=== PATIENT | male | born 1975 | race Caucasian/White ===

== ENCOUNTER 2022-09-25 05:32 | Inpatient (IN) | payer BC ==
[2022-09-25 06:20] LABS: #Basophils 0.1 10x3/uL (0.0-0.2); #Eosinphils 0.4 10x3/uL (0.0-0.5); #Monocytes 1.2 10x3/uL (0.0-1.1); #Neutrophils 5.9 10x3/uL (1.5-8.4); %Basophils 0.8 % (0.0-2.0); %Eosinophils 3.8 % (0.0-6.0); %Monocytes 11.5 % (0.0-10.0); %Neutrophils 56.6 % (40.0-75.0); Mean Corpuscular HGB CONC 34.6 g/dL (32.0-36.0); Mean Corpuscular Hemoglobin 30.7 pg (27.0-33.0); Mean Corpuscular Volume 88.8 fl (81.2-95.1); Mean Platelet Volume 9.9 fl (7.4-10.4); Platelet Count 324 10x3/uL (150-450); RBC Distribution Width 13.2 % (11.5-14.5); Red Blood Cell (RBC) Count 4.56 10x6/uL (4.32-5.72); White Blood Cell (WBC) Count 10.4 10x3/uL (3.5-10.5)
[2022-09-25 06:25] LABS: ALT (SGPT) 59 U/L (8-55); AST (SGOT) 29 U/L (5-34); Albumin 4.1 g/dL (3.5-5.0); Alkaline Phosphatase 148 U/L (40-110); Anion Gap 14 mmol/L (10-20); BUN (Urea Nitrogen) 21 mg/dL (8.9-20.6); Bilirubin, Total 0.5 mg/dL (0.2-1.2); Calc. Creatinine Clearance 0 mL/min (70-130); Calcium 9.9 mg/dL (7.8-10.44); Carbon Dioxide 24 mmol/L (22-29); Chloride 104 mmol/L (98-107); Estimated GFR 101; Globulin 2.9 g/dL (2.4-3.5); Glucose 106 mg/dL (70-105); Sodium 138 mmol/L (136-145)
[2022-09-25] MEDS ORDERED: Morphine 4 MG/ML VIAL ONE (07:00)
[2022-09-25] MEDS ORDERED: Ondansetron PF 4 MG/2 ML Vial ONE (07:00)
[2022-09-25] MEDS ORDERED: Ondansetron PF 4 MG/2 ML Vial IVP PRN (08:01)
[2022-09-25 08:05] LABS: INR-International Normal Ratio 0.9; PTT 28.6 sec (22.0-33.0); Prothrombin Time 10.1 sec (9.5-12.1)
[2022-09-25 09:22] LABS: Troponin I Less than 0.010 ng/mL (< 0.028)
[2022-09-25 10:03] VITALS: BMI 27.8
[2022-09-25] MEDS: HYDROcodone/Acetaminophen 10/325 mg Tablet PO PRN ×2 (11:58→20:17)
[2022-09-25] MEDS: Fish Oil 1,000 MG CAP PO SCH (20:17)
[2022-09-25] MEDS: QUEtiapine 100 MG TAB PO SCH (20:18)
[2022-09-25] MEDS: Famotidine 20 MG TAB PO SCH (20:19)
[2022-09-26] MEDS: oxyCODONE 5 MG TAB PO PRN ×3 (01:29→20:48)
[2022-09-26 03:44] LABS: #Basophils 0.1 10x3/uL (0.0-0.2); #Eosinphils 0.3 10x3/uL (0.0-0.5); #Neutrophils 5.1 10x3/uL (1.5-8.4); %Basophils 0.6 % (0.0-2.0); %Eosinophils 3.6 % (0.0-6.0); %Lymphocytes 30.2 % (18.0-47.0); %Monocytes 10.3 % (0.0-10.0); %Neutrophils 54.8 % (40.0-75.0); Hemoglobin 13.5 g/dL (13.5-17.5); Mean Corpuscular HGB CONC 33.9 g/dL (32.0-36.0); Mean Corpuscular Hemoglobin 30.5 pg (27.0-33.0); Mean Corpuscular Volume 89.8 fl (81.2-95.1); Mean Platelet Volume 9.8 fl (7.4-10.4); Platelet Count 321 10x3/uL (150-450); Red Blood Cell (RBC) Count 4.43 10x6/uL (4.32-5.72); White Blood Cell (WBC) Count 9.3 10x3/uL (3.5-10.5)
[2022-09-26 04:03] LABS: ALT (SGPT) 83 U/L (8-55); AST (SGOT) 54 U/L (5-34); Albumin 3.9 g/dL (3.5-5.0); Alkaline Phosphatase 164 U/L (40-110); Anion Gap 15 mmol/L (10-20); BUN (Urea Nitrogen) 20 mg/dL (8.9-20.6); Bilirubin, Total 0.4 mg/dL (0.2-1.2); Calc. Creatinine Clearance 134 mL/min (70-130); Calcium 9.4 mg/dL (7.8-10.44); Carbon Dioxide 23 mmol/L (22-29); Chloride 103 mmol/L (98-107); Estimated GFR 103; Globulin 2.8 g/dL (2.4-3.5); Glucose 115 mg/dL (70-105); Potassium 4.1 mmol/L (3.5-5.1); Protein, Total 6.7 g/dL (6.0-8.3); Sodium 137 mmol/L (136-145)
[2022-09-26] MEDS: Lidocaine 4% Patch TD SCH (11:52)
[2022-09-26] MEDS: Venlafaxine HCl XR 75 MG CAP PO SCH (11:53)
[2022-09-26] MEDS: Famotidine 20 MG TAB PO SCH (11:54)
[2022-09-26] MEDS: Bupropion 150 MG XL TAB PO SCH (11:55)
[2022-09-26] MEDS ORDERED: traMADol HCl 50 MG TAB PO PRN (12:44)
[2022-09-26] MEDS ORDERED: Cyclobenzaprine 10 MG TAB PO SCH (13:00)
[2022-09-26] MEDS: Acetaminophen 325 MG TAB PO PRN (16:24)
[2022-09-26] MEDS ORDERED: methylPREDNISolone Sod Succ 40 MG VIAL IVP SCH (18:30)
[2022-09-26] MEDS: QUEtiapine 100 MG TAB PO SCH (20:48)
[2022-09-26] MEDS: Fish Oil 1,000 MG CAP PO SCH (20:48)
[2022-09-26] MEDS: Transdermal Patch Removal TOP SCH (21:05)
[2022-09-27 04:56] LABS: #Basophils 0.1 10x3/uL (0.0-0.2); #Eosinphils 0.1 10x3/uL (0.0-0.5); #Monocytes 0.3 10x3/uL (0.0-1.1); #Neutrophils 8.4 10x3/uL (1.5-8.4); %Basophils 0.5 % (0.0-2.0); %Eosinophils 0.5 % (0.0-6.0); %Monocytes 2.8 % (0.0-10.0); %Neutrophils 81.4 % (40.0-75.0); Hemoglobin 15.3 g/dL (13.5-17.5); Mean Corpuscular HGB CONC 34.8 g/dL (32.0-36.0); Mean Corpuscular Hemoglobin 30.6 pg (27.0-33.0); Mean Platelet Volume 9.6 fl (7.4-10.4); Platelet Count 396 10x3/uL (150-450); RBC Distribution Width 12.6 % (11.5-14.5); White Blood Cell (WBC) Count 10.3 10x3/uL (3.5-10.5)
[2022-09-27 05:17] LABS: ALT (SGPT) 88 U/L (8-55); AST (SGOT) 50 U/L (5-34); Albumin 4.6 g/dL (3.5-5.0); Alkaline Phosphatase 182 U/L (40-110); Anion Gap 14 mmol/L (10-20); BUN (Urea Nitrogen) 16 mg/dL (8.9-20.6); Bilirubin, Total 0.5 mg/dL (0.2-1.2); Calc. Creatinine Clearance 139 mL/min (70-130); Carbon Dioxide 24 mmol/L (22-29); Chloride 101 mmol/L (98-107); Estimated GFR 107; Globulin 3.5 g/dL (2.4-3.5); Glucose 175 mg/dL (70-105); Potassium 5.3 mmol/L (3.5-5.1); Protein, Total 8.1 g/dL (6.0-8.3); Sodium 134 mmol/L (136-145)
[2022-09-27] MEDS: Lidocaine 4% Patch TD SCH (08:43)
[2022-09-27] MEDS: Bupropion 150 MG XL TAB PO SCH (08:43)
[2022-09-27] MEDS: Venlafaxine HCl XR 75 MG CAP PO SCH (08:44)
[2022-09-27] MEDS: Acetaminophen 325 MG TAB PO PRN (08:44)
[2022-09-27] MEDS ORDERED: Apixaban 5 MG TAB PO SCH (09:00)
[2022-09-27] MEDS ORDERED: Lidocaine 4% Patch TD SCH (14:00)
[2022-09-27 14:24] LABS: Anion Gap 18 mmol/L (10-20); BUN (Urea Nitrogen) 23 mg/dL (8.9-20.6); Calc. Creatinine Clearance 129 mL/min (70-130); Calcium 11.4 mg/dL (7.8-10.44); Carbon Dioxide 23 mmol/L (22-29); Chloride 101 mmol/L (98-107); Estimated GFR 98; Glucose 99 mg/dL (70-105); Potassium 4.9 mmol/L (3.5-5.1); Sodium 137 mmol/L (136-145)
[2022-09-27] MEDS: oxyCODONE 5 MG TAB PO PRN (18:50)
[2022-09-27] MEDS: Transdermal Patch Removal TOP SCH (21:02)
[2022-09-27] MEDS: Fish Oil 1,000 MG CAP PO SCH (21:02)
[2022-09-27] MEDS: QUEtiapine 100 MG TAB PO SCH (21:02)
[2022-09-27] MEDS ORDERED: traMADol HCl 50 MG TAB PO SCH (22:00)
[2022-09-28 08:16] LABS: #Basophils 0.1 10x3/uL (0.0-0.2); #Eosinphils 0.9 10x3/uL (0.0-0.5); #Monocytes 1.2 10x3/uL (0.0-1.1); #Neutrophils 6.3 10x3/uL (1.5-8.4); %Basophils 0.9 % (0.0-2.0); %Eosinophils 6.7 % (0.0-6.0); %Lymphocytes 33.4 % (18.0-47.0); %Monocytes 9.5 % (0.0-10.0); %Neutrophils 48.6 % (40.0-75.0); Hemoglobin 15.6 g/dL (13.5-17.5); Mean Corpuscular HGB CONC 33.9 g/dL (32.0-36.0); Mean Corpuscular Hemoglobin 30.6 pg (27.0-33.0); Mean Corpuscular Volume 90.2 fl (81.2-95.1); Mean Platelet Volume 10.5 fl (7.4-10.4); Platelet Count 403 10x3/uL (150-450); RBC Distribution Width 13.2 % (11.5-14.5); White Blood Cell (WBC) Count 12.9 10x3/uL (3.5-10.5)
[2022-09-28] MEDS: Bupropion 150 MG XL TAB PO SCH (08:32)
[2022-09-28] MEDS: Venlafaxine HCl XR 75 MG CAP PO SCH (08:32)
[2022-09-28 08:33] LABS: ALT (SGPT) 101 U/L (8-55); AST (SGOT) 82 U/L (5-34); Albumin 4.3 g/dL (3.5-5.0); Alkaline Phosphatase 168 U/L (40-110); Anion Gap 18 mmol/L (10-20); BUN (Urea Nitrogen) 26 mg/dL (8.9-20.6); Bilirubin, Total 0.4 mg/dL (0.2-1.2); Calc. Creatinine Clearance 139 mL/min (70-130); Carbon Dioxide 20 mmol/L (22-29); Chloride 105 mmol/L (98-107); Estimated GFR 107; Globulin 3.2 g/dL (2.4-3.5); Glucose 99 mg/dL (70-105); Potassium 4.3 mmol/L (3.5-5.1); Protein, Total 7.5 g/dL (6.0-8.3); Sodium 139 mmol/L (136-145)
[2022-09-28] MEDS: Lidocaine 4% Patch TD SCH (08:34)
[2022-09-28 11:57] VITALS: BP 133/91; TEMP 97.7
[2022-09-28] MEDS ORDERED: Apixaban 5 MG TAB PO SCH (21:00)
[2022-10-05] MEDS ORDERED: Apixaban 5 MG TAB PO SCH (21:00)
== END 2022-09-28 12:05 | disposition home or self-care (01) | DRG 175 ==
LOC: CSHERS 05:32 → CSHTELE 09:33 → INTOOBSV 09:33 → OBSVTOIN 09:33 → UNDOADMOB 09:33 → CSHTELE 09-26 14:18 → OBSVTOIN 09-26 14:18
PROVIDERS: ADMIT Internal Medicine; ATTEND Internal Medicine
DX: I26.99 Other pulmonary embolism without acute cor pulmonale (principal); J96.01 Acute respiratory failure with hypoxia; S22.41XA Multiple fractures of ribs, right side, initial encounter for closed fracture; J90 Pleural effusion, not elsewhere classified; J98.11 Atelectasis; F32.A Depression, unspecified; F41.9 Anxiety disorder, unspecified; E66.9 Obesity, unspecified; F17.210 Nicotine dependence, cigarettes, uncomplicated; Z66 Do not resuscitate; F43.10 Post-traumatic stress disorder, unspecified; Z20.822 Contact with and (suspected) exposure to COVID-19; W19.XXXA Unspecified fall, initial encounter; Z90.49 Acquired absence of other specified parts of digestive tract; Z98.890 Other specified postprocedural states; Z91.030 Bee allergy status; Z68.27 Body mass index [BMI] 27.0-27.9, adult
CPT/HCPCS: 36415; 71045; 71275; 74176; 80053; 83880; 83970; 84145; 84484; 85025; 85379; 85610; 85730; 93005; 93306; 93970; 94640; 94667; 94668; 94760; 94762; 94799; 96372; 96374; 96375; G0378; J1650; J2270; J2405; J2920; J7611; U0003; U0005